=== PATIENT | male | born 1985 | race African-American/Black ===

== ENCOUNTER 2018-01-17 09:30 | Emergency (ER) | payer SELFPAY ==
[~2018-01-17] VITALS: Ht 170.2 cm; Wt 81.8 kg
[2018-01-17 09:33] VITALS: Ht 170.2 cm; Wt 81.8 kg
[2018-01-17 10:59] LABS: BASOPHILS 0.6 % (0-2); EOSINOPHILS 1.8 % (0-7); HEMATOCRIT 45.5 % (42.0-54.0); HEMOGLOBIN 15.3 g/dL (13.5-17.5); IMMATURE GRANULOCYTES 0.2 % (0-5); LYMPHOCYTES 29.7 % (15-50); MCHC 33.6 g/dL (31.0-37.0); MCV 86.3 fL (80.0-100.0); MEAN PLATELET VOLUME 10.6 fL (7.4-10.4); MONOCYTES 7.1 % (2-11); NEUTROPHILS 60.6 % (40-80); PLATELET COUNT 371 10x3/uL (130-400); RBC 5.27 10x6/uL (4.20-6.10); WBC 8.4 10x3/uL (4.8-10.8)
[2018-01-17 11:18] LABS: ALBUMIN 3.9 g/dL (3.4-5.0); ALKALINE PHOSPHATASE 65 U/L (46-116); ALT (SGPT) 42 U/L (10-68); BILIRUBIN - TOTAL 0.53 mg/dL (0.2-1.3); CALC OSMOLALITY 278 mosm/kg (275-300); CALCIUM 9.1 mg/dL (8.5-10.1); CARBON DIOXIDE 28.7 mmol/L (21.0-32.0); CHLORIDE - SERUM 104 mmol/L (98-107); CREATININE - SERUM 1.1 mg/dL (0.6-1.3); GLUCOSE 89 mg/dL (74-106); POTASSIUM - SERUM 4.4 mmol/L (3.5-5.1); PROTEIN - SERUM 7.6 g/dL (6.4-8.2); SODIUM 141 mmol/L (136-145); UREA NITROGEN 10 mg/dL (7-18); eGFR NON AFRICAN AMERICAN 83 mL/min (90-120)
[2018-01-17 11:36] LABS: CREATINE KINASE 271 UL (21-232)
[2018-01-17 11:37] LABS: CKMB 1.5 U/L (0.0-3.6)
[2018-01-17 11:53] LABS: APPEARANCE CLEAR (CLEAR); BILIRUBIN NEGATIVE (NEGATIVE); COLOR YELLOW (YELLOW); GLUCOSE NEGATIVE (NEGATIVE); KETONE NEGATIVE (NEGATIVE); NITRITE NEGATIVE (NEGATIVE); PROTEIN NEGATIVE (NEGATIVE); UROBILINOGEN NORMAL (NORMAL)
[2018-01-17 12:15] VITALS: BP 131/78
== END 2018-01-17 12:17 | disposition home or self-care (01) ==
LOC: D.ER 09:30
PROVIDERS: Family Medicine
DX: R42 Dizziness and giddiness (principal); X30.XXXA Exposure to excessive natural heat, initial encounter; Y93.89 Activity, other specified; Y92.89 Other specified places as the place of occurrence of the external cause; R20.2 Paresthesia of skin; F17.200 Nicotine dependence, unspecified, uncomplicated

== ENCOUNTER 2018-12-03 22:33 | Emergency (ER) | payer SELFPAY ==
[~2018-12-03] VITALS: Ht 170.2 cm; Wt 81.6 kg
[2018-12-03 22:47] VITALS: Ht 170.2 cm; Wt 81.6 kg
[2018-12-04] MEDS ORDERED: EC-NAPROSYN500 MG PO (00:32)
[2018-12-04 00:46] VITALS: BP 132/74
== END 2018-12-04 00:47 | disposition home or self-care (01) ==
LOC: D.ER 22:33
DX: S63.501A Unspecified sprain of right wrist, initial encounter (principal); X58.XXXA Exposure to other specified factors, initial encounter; Y93.9 Activity, unspecified; Y92.89 Other specified places as the place of occurrence of the external cause; F17.200 Nicotine dependence, unspecified, uncomplicated